=== PATIENT | female | born 1960 | race Two or more races ===

== ENCOUNTER 2025-07-05 08:25 | Day surgery (SDC) | payer MEDICARE, SELFPAY ==
--- NOTE | 2025-07-04 11:20 | EKG_ITS ---
[facility] Test Date: 2025-07-04 Pat Name: VI MOBLEY Department: Room: - Gender: Female [employer]: ORLIN : 1960 Requested By: Berry Bustillos Order Number: [id number] Reading MD: Berry Bustillos Measurements Intervals Hope Rate: 66 P: 56 VA: 149 QRS: -30 QRSD: 88 T: 46 QT: 410 QTc: 431 Interpretive Statements SINUS RHYTHM POSSIBLE RIGHT VENTRICULAR CONDUCTION DELAY [RSR (QR) IN V1/V2] PROBABLE SEPTAL MYOCARDIAL INFARCTION , OF INDETERMINATE AGE [35 ms Q WAVE IN V1/V2] No previous ECG available for comparison /[id number]/[email or web address]/[id number].pdf
[2025-07-04 11:23] VITALS: BMI 33.3
[2025-07-04 12:51] LABS: Basophils # (Auto) 0.0 Thou/mm3 (0.0-0.2); Basophils % (Auto) 0 % (0-2.5); Eosinophils # (Auto) 0.7 Thou/mm3 (0.0-0.5); Eosinophils % (Auto) 8 % (0-10); Hematocrit 41.3 % (36.0-46.0); Hemoglobin 13.2 g/dL (12.0-16.0); Immature Granulocytes Auto 0.02 Thou/mm3 (0.00-0.00); Lymphocytes # (Auto) 3.5 Thou/mm3 (1.0-4.8); Lymphocytes % (Auto) 39 % (10-50); Mean Corpuscular HGB Conc 32.0 g/dl (31.0-37.0); Mean Corpuscular Hemoglobin 26.0 pg (25.0-35.0); Mean Corpuscular Volume 81 fL (80-100); Monocytes # (Auto) 0.4 Thou/mm3 (0.0-0.8); Monocytes % (Auto) 4 % (0-12); Neutrophils # (Auto) 4.4 Thou/mm3 (1.8-7.7); Neutrophils % (Auto) 49 % (37-80); Nucleated Red Blood Cell # 0.00 Thou/mm3 (0.00-0.00); Nucleated Red Blood Cell % 0 /100 WBC (0); Platelet Count 234 Thou/mm3 (140-440); RDW Standard Deviation 41.7 fL (36.4-46.3); Red Blood Count 5.08 Miln/mm3 (4.00-5.20); White Blood Count 9.1 Thou/mm3 (3.6-11.0)
[2025-07-04 13:02] LABS: Alanine Aminotransferase 23 U/L (10-49); Albumin, Serum 4.4 gm/dL (3.4-4.8); Albumin/Globulin Ratio 1.8 (1.2-2.2); Alkaline Phosphatase 119 U/L (46-116); Anion Gap 8 (7-16); Aspartate Amino Transferase 24 U/L (0-34); BUN/Creatinine Ratio 13 Ratio (12-20); Bilirubin,Total 0.4 mg/dL (0.3-1.2); Blood Urea Nitrogen 10 mg/dL (9-23); Calcium 9.9 mg/dL (8.3-10.6); Calcium (Corrected) 9.9 mg/dL (8.5-10.1); Carbon Dioxide 31.2 mMol/L (20.0-31.0); Chloride 105 mMol/L (98-107); Creatinine (Component) 0.8 mg/dL (0.6-1.3); Estimated Creatinine Clearance 66.2 mL/min (>60); Globulin 2.4 gm/dL (2.3-3.5); Glucose 105 mg/dL (74-106); Osmolality,Calculated 285 (275-295); Potassium 3.9 mMol/L (3.4-5.1); Sodium 144 mMol/L (136-145); Total Protein 6.8 gm/dL (5.7-8.2); eGFR > 60 See Note
[2025-07-04 13:07] LABS: INR 1.0 (0.9-1.3); Partial Thromboplastin Time 34.2 Seconds (22.0-36.0); Prothrombin Time 11.1 Seconds (9.0-12.2)
--- NOTE | 2025-07-04 14:11 | SUR.PREOP ---
Message left with Glenny addy's daughter to bring pt at 0830 tomorrow for surgery.
[2025-07-05] VITALS (7 sets, daily range): BP systolic 143–169; BP diastolic 73–93; PULSE 73–94; RESP 12–18; TEMP 36.1–36.4; O2SAT 97–100; BMI 33.3
--- NOTE | 2025-07-05 11:45 | SUR.PHASEI ---
1145: Pt. wakes to name then drifts back to sleep, vitals stable, breathing unlabored, no complaint of pain or nausea, dressing to left leg CDI, no active bleed noted, report received from Loyd FREED and Collin BAGLEY.
[2025-07-05] MEDS: fentaNYL CIT INJ 50 mCg/ML AMP 2ML 25 MCG IVP ×2 (11:56→12:11)
--- NOTE | 2025-07-05 12:02 | ESOP_ITS ---
Date of Procedure 07/05/25 Pre Op Diagnosis 1. Torn medial meniscus right knee joint 2 torn lateral meniscus 3 DJD 4 synovitis Post Op Diagnosis Same Procedure 1. Partial medial meniscectomy 2 partial lateral meniscectomy 3 chondroplasty 4 partial synovectomy Findings Refer dictation Procedure Description The patient was given general endotracheal anesthesia. Once satisfactory anesthesia was achieved, tourniquet was placed on right upper thigh. Following that the part was thoroughly prepped and draped. After using Esmarch the tourniquet pressure was raised to 350 mmHg. A skin incision was made proximal to lateral tibial plateau and arthroscope was introduced in the usual fashion. Another a skin incision was made in supr apatellar pouch area and outlet was established. The findings were noted as below. In suprapatellar pouch area significant synovial tissue inflammation was present. Medial plica was present as well. The undersurface of patella showed grade 4 chondromalacia. The anterior femoral condyle showed grade 4 chondromalacia. Soft tissue impingement was present. The patellar tracking was checked and found to be good. The medial compartment showed grade 3 chondromalacia for medial tibial plateau and medial femoral condyle. The medial meniscus showed degeneration and tear of the anterior horn. Another skin incision was made proximal to medial tibial plateau and a probe was introduced and findings were confirmed. The anterior cruciate ligament was intact. The anterior drawer test was perfo rmed and found to be good. With the help of probe the integrity was tested and found to be good. 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 Almost all of the area of the lateral tibial plateau was denuded of articular cartilage. Most of the articular cartilage from the lateral femoral condyle was absent. Lateral meniscus showed degeneration and complex tear of the body and posterior horn. A shaver was introduced and shaving of the anterior horn of medial meniscus was performed. Soft tissue impingement was shaved off. Chondroplasty of the medial femoral condyle and medial tibial plateau was performed. A basket was introduced in the lateral compartment and torn part of the lateral meniscus was excised. The shaving of the body and anterior horn of lateral meniscus was done. Chondroplasty of the lateral tibial plateau and lateral femoral condyle was performed. The chondroplasty of the patella and and anterior femoral condyle was performed. The soft tissue impingement was shaved off. A partial synovectomy including excision of plica was performed. Copious amount of irrigation was used to irrigate the knee joint. All the debris were removed. 3-0 Prolene was used to close the wound. About 20 mL of quarter percent Marcaine along with 10 mg of Duramorph was injected. Patient tolerated procedure well. Estimated blood loss was about 5 mL. Prognosis in this case is guarded. Because of grade IV chondromalacia in the lateral compartment and patellofemoral compartment there is a possibility that patient may continue having pain and if the pain is severe patient may be a candidate for total knee replacement and patient is fully aware of that. Patient was taken to the recovery room in good condition. Anesthesia GETA and other Pathology / specimen None Estimated Blood Loss 2 Surgeon Berry Luna MD Surgical Staff Operation Date: 07/05/25 10:30 Case Staff Anesthesiologist: Cody Mart
--- NOTE | 2025-07-05 12:40 | SUR.PHASEII ---
1240: Pt. AAOx4, vitals stable, breathing unlabored, no complaint of pain or nausea, dressing to right knee CDI, no active bleed noted, bilateral dorsalis pedis pulses strong and regular, cap refill to bilateral feet less than 3 seconds, pt. tolerated sips of juice well, pt. ambulated to wheelchair with steady gait and no assist, no complications. Gave discharge instructions to the pt. and her ride, both verbalized understanding and had no further questions. Pt. left with all presonal belongings.
--- NOTE | 2025-07-05 12:49 | ESHP_ITS ---
RE: VI DUBOIS : 1960 DATE OF ADMISSION: 07/05/2025 The patient came to my office on 07/04/2025 for detailed preop history and physical examination. HISTORY OF PRESENT COMPLAINT: The patient has a history of pain, swelling, clicking, and locking of the right knee joint. Intensity of pain is 7-8/10. Unable to sleep. Interferes with routine daily activities. Quality of life is affected. The patient wants something to be done about it. MRI scan confirmed torn meniscus with DJD. PAST MEDICAL HISTORY: No history of diabetes mellitus, high blood pressure, asthma, seizure, chest pain, myocardial infarction, or bleeding disorder. PAST SURGICAL HISTORY: Nil. DRUG HISTORY: The patient takes ibuprofen. ALLERGIES: NIL KNOWN. FAMILY HISTORY AND SOCIAL HISTORY: The patient denies smoking, drinking, and is not working. PHYSICAL EXAMINATION: GENERAL: Normal white lady. VITAL SIGNS: Pulse 88 per minute. Blood pressure 136/76. NECK: Soft, supple. No mass felt. Trachea is centrally placed. CARDIOVASCULAR SYSTEM: First and second heart sounds normal. No murmur heard. RESPIRATORY SYSTEM: Bilateral vesicular breath sounds. CHEST: Clear. ABDOMEN: Soft. No mass felt. Bowel sounds present. BREAST: Breast examination not indicated in this case. RECTAL: The patient is advised to see the family physician for rectal examination. EXTREMITIES: Right knee examination revealed 1+ swelling and 2+ tenderness. Active range of motion 0-110 degrees of flexion. Kasia's test is positive. Drawer test and Jourdan tests were negative. Neurovascularly is intact. IMAGING: MRI scan confirmed torn medial and lateral meniscus. There is a complex tear of the lateral meniscus. There is DJD and synovitis with increased joint fluid. Since the patient is symptomatic, therefore, a right knee arthroscopy was discussed and advised. Risks of anesthesia was explained and that includes, but not limited to reaction to anesthetic agents, cardiac arrest, Rarely it might be fatal. Risk with operation includes infection and if that happens, the patient may need further surgical procedure. Other risks include delayed healing, wound dehiscence, etc. Indeed, if one find grade 4 chondromalacia, the patient may be a candidate for knee replacement and the patient is fully aware of that. No guarantee is given regarding the outcome of the procedure and/or pain relief. Accordingly, surgery is booked for 07/05/2025. Appropriate lab work is done. DT: 12:15:41 TT: 12:48:00 Ref: [id number] - TID: [id number]
== END 2025-07-05 12:40 | disposition home or self-care (01) ==
PROVIDERS: Anesthesiology; PCP Family Medicine; Referring Provider Orthopaedic Surgery; Visit Provider Orthopaedic Surgery
PROC: (CPT 29870; principal; 2025-07-05 10:30)
DX: S83.271A Complex tear of lateral meniscus, current injury, right knee, initial encounter (principal); S83.241A Other tear of medial meniscus, current injury, right knee, initial encounter; X58.XXXA Exposure to other specified factors, initial encounter; Z01.810 Encounter for preprocedural cardiovascular examination; M65.861 Other synovitis and tenosynovitis, right lower leg; M17.11 Unilateral primary osteoarthritis, right knee; M67.51 Plica syndrome, right knee; M22.41 Chondromalacia patellae, right knee; M26.81 Anterior soft tissue impingement
CPT/HCPCS: 29880; 36415; 80053; 85025; 85610; 85730; 93005; A4217; A4649; J0131; J0690; J1100; J1885; J2274; J2371; J2405; J2704; J3010; J3490; J0665; J2270